=== PATIENT | female | born 1995 ===

== ENCOUNTER → 2021-02-02 09:30 | Outpatient (CLI) | payer OTHER | END | disposition home or self-care (01) | LOC: RAD 09:30 | PROVIDERS: ATTEND Orthopaedic Surgery | DX: M25.561 Pain in right knee (principal); M25.562 Pain in left knee; M22.41 Chondromalacia patellae, right knee; M22.42 Chondromalacia patellae, left knee | CPT/HCPCS: 73221 ==

== ENCOUNTER 2021-12-28 12:44 | Outpatient (CLI) | payer OTHER | END 2021-12-28 13:17 | disposition home or self-care (01) | LOC: LAB 12:44 | PROVIDERS: ATTEND Pediatrics | DX: Z00.00 Encounter for general adult medical examination without abnormal findings (principal) ==